=== PATIENT | female | born 2000 | race American Indian/Alaskan Native ===

== ENCOUNTER 2021-06-06 14:50 | Emergency (ER) | payer SELFPAY ==
[2021-06-06 15:37] VITALS: BP 131/89
--- NOTE | 2021-06-06 17:40 | Emergency Department Report ---
ED General Adult HPI - General Chief complaint: Extremity Problem,Nontraumatic Stated complaint: RT ELBOW INJURY Time Seen by Provider: 06/06/21 16:38 Source: patient Mode of arrival: Ambulatory Limitations: No Limitations - History of Present Illness Initial comments: 20-year-old -[place] female patient presents with complaints of right elbow pain today. Patient states 3 weeks ago she injured her elbow while playing fighting with someone. She states the pain improved over a few days, however the pain suddenly began to worsen today while at work. She denies any new injuries. She describes the pain as shooting, sharp, and burning. She denies trying any OTC medication for symptoms. Patient also denies any swelling to the area, redness, or fever/chills/sweats. Severity scale (0 -10): 10 - Related Data Previous Rx's Medication Instructions Recorded Last Taken Type Naproxen 500 mg PO BID PRN #20 tablet 06/06/21 Unknown Rx predniSONE 10 mg PO QDAY 4 Days #12 tab 06/06/21 Unknown Rx Allergies Allergy/AdvReac Type Severity Reaction Status Date / Time No Known Allergies Allergy Unverified 06/06/21 15:33 ED Review of Systems ROS: Stated complaint: RT ELBOW INJURY Other details as noted in HPI Constitutional: denies: fever, malaise Musculoskeletal: arthralgia. denies: joint swelling Skin: denies: change in color ED Past Medical Hx - Past Medical History Previous Medical History?: No - Surgical History Past Surgical History?: No - Medications Home Medications: Home Medications Medication Instructions Recorded Confirmed Last Taken Type Naproxen 500 mg PO BID PRN #20 tablet 06/06/21 Unknown Rx predniSONE 10 mg PO QDAY 4 Days #12 tab 06/06/21 Unknown Rx ED Physical Exam - General Limitations: No Limitations General appearance: alert, in no apparent distress - Head Head exam: Present: atraumatic, normocephalic - Eye Eye exam: Present: normal appearance - Respiratory Respiratory exam: Absent: respiratory distress - Cardiovascular Cardiovascular Exam: Present: regular rate - Expanded Upper Extremity Exam Right Elbow exam: Present: full ROM, tenderness (Tenderness to palpation noted of the ulnar nerve at the elbow without bony tenderness). Absent: swelling Forearm Wrist exam: Present: normal inspection Hand Wrist exam: Present: normal inspection Vascular: Absent: vascular compromise - Neurological Exam Neurological exam: Present: alert, oriented X3, normal gait - Psychiatric Psychiatric exam: Present: normal affect, normal mood - Skin Skin exam: Present: warm, dry, intact, normal color. Absent: rash ED Course Vital Signs 06/06/21 15:34 Temperature 98.7 F Pulse Rate 91 H Respiratory 19 Rate Blood Pressure 131/89 [Left] O2 Sat by Pulse 100 Oximetry ED Medical Decision Making - Medical Decision Making 20-year-old -[place] female patient presents with complaints of right elbow pain today. Patient states 3 weeks ago she injured her elbow while playing fighting with someone. She states the pain improved over a few days, however the pain suddenly began to worsen today while at work. She denies any new injuries. She describes the pain as shooting, sharp, and burning. She denies trying any OTC medication for symptoms. Patient also denies any swelling to the area, redness, or fever/chills/sweats. Tenderness to palpation noted over the ulnar nerve at the ulnar groove of the elbow. Suspect ulnar nerve irritation. Will treat with NSAIDs and prednisone and icing with a compression wrap. Recommend follow-up with PCP in 3 to 5 days. She is well-appearing, her vitals are normal, she is stable for discharge home. Discussed presumptive diagnosis and signs and symptoms that should prompt immediate return to the emergency department in detail patient verbalizes understanding. Critical care attestation.: If time is entered above; I have spent that time in minutes in the direct care of this critically ill patient, excluding procedure time. ED Disposition Clinical Impression: Right elbow pain Disposition: 01 HOME / SELF CARE / HOMELESS Is pt being admited?: No Condition: Stable Instructions: Cubital Tunnel Syndrome, Ulnar Nerve Contusion Prescriptions: Naproxen 500 mg PO BID PRN #20 tablet PRN Reason: pain predniSONE 10 mg PO QDAY 4 Days #12 tab Referrals: [facility] [Provider Group] - 3-5 Days Forms: Work/School Release Form(ED)
== END 2021-06-06 18:10 | disposition home or self-care (01) ==
LOC: ED 14:50
DX: M25.521 Pain in right elbow (principal); Y04.8XXA Assault by other bodily force, initial encounter; Y93.89 Activity, other specified; Y92.89 Other specified places as the place of occurrence of the external cause; Y99.8 Other external cause status
CPT/HCPCS: 99281